=== PATIENT | female | born 1990 | race African-American/Black ===

== ENCOUNTER 2018-07-08 13:48 | Emergency (ER) | payer OTHER ==
[2018-07-08] MEDS ORDERED: METHOCARBAMOL 500 MG TABLET PO ONE (15:13)
[2018-07-08] MEDS ORDERED: IBUPROFEN 600 MG TABLET PO ONE (15:13)
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
[2018-07-08 15:59] LABS: APPEARANCE,URINE CLEAR; BILIRUBIN,URINE NEGATIVE (NEGATIVE); COLOR,URINE STRAW; GLUCOSE, URINE NEGATIVE (NEGATIVE); KETONES,URINE NEGATIVE (NEGATIVE); LEUKOCYTE ESTERASE,URINE SMALL (NEGATIVE); NITRITE,URINE NEGATIVE (NEGATIVE); PROTEIN,URINE NEGATIVE (NEGATIVE); URINE SPECIFIC GRAVITY 1.003; UROBILINOGEN,URINE NEGATIVE mg/dL (<2.0)
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
[2018-07-08 16:38] VITALS: BP 121/78
== END 2018-07-08 16:21 | disposition home or self-care (01) ==
LOC: ER 13:48
DX: M79.602 Pain in left arm (principal); R51 Headache; V87.7XXA Person injured in collision between other specified motor vehicles (traffic), initial encounter
CPT/HCPCS: 81001; 81025; 99283

== ENCOUNTER 2018-07-09 13:22 | Emergency (ER) | payer OTHER ==
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
[2018-07-09 17:09] LABS: APPEARANCE,URINE SLIGHTLY-CLOUDY; BILIRUBIN,URINE SMALL (NEGATIVE); COLOR,URINE YELLOW; GLUCOSE, URINE NEGATIVE (NEGATIVE); KETONES,URINE TRACE mg/dL (NEGATIVE); LEUKOCYTE ESTERASE,URINE TRACE (NEGATIVE); NITRITE,URINE NEGATIVE (NEGATIVE); PROTEIN,URINE NEGATIVE (NEGATIVE); URINE SPECIFIC GRAVITY 1.027; UROBILINOGEN,URINE NEGATIVE mg/dL (<2.0)
[2018-07-09] MEDS ORDERED: KETOROLAC TROMETHAMINE 60 MG/2 ML SDV IM ONE (17:48)
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
[2018-07-09 18:55] VITALS: BP 121/82
== END 2018-07-09 18:53 | disposition home or self-care (01) ==
LOC: ER 13:22
DX: G44.209 Tension-type headache, unspecified, not intractable (principal); H53.142 Visual discomfort, left eye; V49.9XXA Car occupant (driver) (passenger) injured in unspecified traffic accident, initial encounter
CPT/HCPCS: 99284; 96372; 81025; 81001; 70450; J1885